=== PATIENT | female | born 1935 | race Caucasian/White ===

== ENCOUNTER 2017-09-04 17:49 | Inpatient (IN) | payer OTHER ==
[~2017-09-04] VITALS: Ht 165.1 cm; Wt 70.1 kg
[~2017-09-04 17:49] MED LIST: LISI-646 PO; METO-158 PO; OMEP20CA74 PO
[2017-09-04] MEDS ORDERED: SODIUM CHLORIDE 0.9% 1,000 ML IVB ONE (18:18)
[2017-09-04 20:30] LABS: Basophils # (auto) 0 uL; Eosinophils # (auto) 0 uL; Hemoglobin 9.5 g/dL (12.2-16.2); Mean Corpuscular Hgb Conc. 31.6 g/dL (32.0-36.0); Neutrophils # (auto) 4.4 uL; Nucleated Red Blood Cells % 0.2 %
[2017-09-04 20:32] LABS: Basophils % (auto) 0.2 % (0.0-2.0); Eosinophils % (auto) 0.2 % (0.0-7.0); Lymphocytes # (auto) 0.8 uL; Mean Corpuscular Hemoglobin 26.5 pg (28.0-32.0); Mean Corpuscular Volume 83.9 fL (80.0-100.0); Monocytes # (auto) 0.4 uL; Monocytes % (auto) 6.4 % (0.0-12.0); Neutrophils % (auto) 78.2 % (37.0-80.0); Platelet Count (auto) 388 10^3/uL (140-450); Red Blood Cells 3.58 10^6/uL (4.0-5.20); Red Cell Distribution Width 17.7 % (11.8-14.3); White Blood Cell 5.6 10^3/uL (4.4-10.8)
[2017-09-04 20:45] LABS: INR 1.15 (0.9-1.15); Partial Thromboplastin Time 34.3 sec (22.64-33.71); Prothrombin Time 12.5 sec (9.37-12.3)
[2017-09-04] MEDS ORDERED: SODIUM CHLORIDE 0.9% 1,000 ML IV ONE (20:45)
[2017-09-04 20:57] LABS: Albumin 3.2 g/dL (3.4-5.0); BUN/Creatinine Ratio 32.3; Potassium 3.9 mmol/L (3.5-5.1); Total Protein 6.1 g/dL (6.4-8.2)
[2017-09-04 21:23] LABS: Bilirubin, Total 0.4 mg/dL (0.2-1.0)
[2017-09-04] MEDS ORDERED: NITROGLYCERIN 0.4 MG SL TAB SL PRN (22:30)
[2017-09-04] MEDS ORDERED: MORPHINE SULFATE 10 MG/ML INJ 1ML SDV IV PRN (22:30)
[2017-09-04] MEDS ORDERED: MORPHINE SULF INJ 2 MG/ML SYRINGE 1ML IV PRN (23:00)
[2017-09-04] MEDS ORDERED: ONDANSETRON HCL 4 MG/2 ML VIAL IV PRN (23:00)
[2017-09-04 23:34] LABS: Urine Bacteria FEW /hpf (None Seen); Urine Blood Negative /uL (Negative); Urine Budding Yeast OCCASIONAL /hpf (None Seen); Urine Specific Gravity 1.027 (1.001-1.035); Urine WBC 28 /hpf (0 - 5)
[2017-09-05 05:08] VITALS: BP 116/88
[2017-09-05 07:52] VITALS: BP 121/88
[2017-09-05] MEDS ORDERED: DILTIAZEM HCL 60 MG TAB PO SCH (08:15)
[2017-09-05] MEDS ORDERED: DILTIAZEM HCL 25 MG/5 ML VIAL IV ONE ×2 (08:15→11:30)
[2017-09-05] MEDS ORDERED: METOPROLOL TARTRATE 50 MG TAB PO SCH (10:00)
[2017-09-05] MEDS ORDERED: LISINOPRIL 20 MG TAB PO SCH (10:00)
[2017-09-05] MEDS ORDERED: ASPirin 81 mg TAB PO SCH (10:00)
[2017-09-05] MEDS: LEVOFLOXACIN 500MG 100 ML IV SCH (10:36)
[2017-09-05] MEDS: HYDROcodone-ACET 5/325MG TAB PO PRN ×2 (10:39→21:43)
[2017-09-05] MEDS: OMEPRAZOLE 20MG/10ML ORAL SUSP PO SCH (11:06)
[2017-09-05] MEDS ORDERED: ASPirin-EC 325mg tab PO ONE (11:15)
[2017-09-05] MEDS ORDERED: SODIUM CHLORIDE 0.9% 1,000 ML IV SCH (12:15)
[2017-09-05] MEDS ORDERED: SODIUM CHLORIDE 0.9% 500 ML IV ONE (12:15)
[2017-09-05 13:00] VITALS: BP 104/71
[2017-09-05] MEDS ORDERED: DIGOXIN (250MCG/ML) 2 ML AMPULE IV SCH (13:45)
[2017-09-05 14:43] LABS: Basophils # (auto) 0 uL; Eosinophils # (auto) 0 uL; Hemoglobin 8.2 g/dL (12.2-16.2); Neutrophils # (auto) 5.1 uL
[2017-09-05 14:46] LABS: Basophils % (auto) 0.2 % (0.0-2.0); Eosinophils % (auto) 0.3 % (0.0-7.0); Hematocrit 27.1 % (36.0-46.0); Lymphocytes # (auto) 0.7 uL; Lymphocytes % (auto) 11.1 % (10.0-50.0); Mean Corpuscular Hemoglobin 26.1 pg (28.0-32.0); Mean Corpuscular Hgb Conc. 30.2 g/dL (32.0-36.0); Mean Corpuscular Volume 86.6 fL (80.0-100.0); Monocytes # (auto) 0.3 uL; Monocytes % (auto) 5.6 % (0.0-12.0); Neutrophils % (auto) 82.8 % (37.0-80.0); Platelet Count (auto) 310 10^3/uL (140-450); Red Blood Cells 3.13 10^6/uL (4.0-5.20); Red Cell Distribution Width 17.9 % (11.8-14.3); White Blood Cell 6.1 10^3/uL (4.4-10.8)
[2017-09-05 15:21] LABS: Albumin 2.6 g/dL (3.4-5.0); BUN/Creatinine Ratio 28.4; Bilirubin, Total 0.4 mg/dL (0.2-1.0); Calcium 7.5 mg/dL (8.5-10.1); Potassium 3.7 mmol/L (3.5-5.1); Total Protein 5.2 g/dL (6.4-8.2)
[2017-09-05 17:00] VITALS: BP 123/75
[2017-09-05] MEDS: ENOXAPARIN SOD 80 MG/0.8ML SYRINGE SC SCH (17:29)
[2017-09-05 19:50] VITALS: BP 106/56
[2017-09-06] VITALS: BP 130/19
[2017-09-06 04:00] VITALS: BP 125/58
[2017-09-06 05:25] LABS: BUN/Creatinine Ratio 28.1; Calcium 7.9 mg/dL (8.5-10.1); Potassium 3.9 mmol/L (3.5-5.1)
[2017-09-06 05:29] LABS: Basophils # (auto) 0 uL; Basophils % (auto) 0.1 % (0.0-2.0); Eosinophils # (auto) 0 uL; Lymphocytes # (auto) 0.9 uL; Monocytes # (auto) 0.3 uL; Red Blood Cells 3.04 10^6/uL (4.0-5.20); White Blood Cell 5.2 10^3/uL (4.4-10.8)
[2017-09-06 05:31] LABS: Eosinophils % (auto) 0.5 % (0.0-7.0); Hematocrit 25.3 % (36.0-46.0); Lymphocytes % (auto) 17.1 % (10.0-50.0); Mean Corpuscular Hemoglobin 26.5 pg (28.0-32.0); Mean Corpuscular Hgb Conc. 31.9 g/dL (32.0-36.0); Monocytes % (auto) 5.7 % (0.0-12.0); Neutrophils % (auto) 76.6 % (37.0-80.0); Platelet Count (auto) 284 10^3/uL (140-450); Red Cell Distribution Width 17.5 % (11.8-14.3)
[2017-09-06 08:00] VITALS: BP 145/83
[2017-09-06] MEDS: LEVOFLOXACIN 500MG 100 ML IV SCH (10:25)
[2017-09-06] MEDS: ASPirin-EC 325mg tab PO SCH (10:26)
[2017-09-06] MEDS: FUROSEMIDE 20 MG TAB PO SCH (10:27)
[2017-09-06] MEDS: OMEPRAZOLE 20MG/10ML ORAL SUSP PO SCH (10:28)
[2017-09-06] MEDS: METOPROLOL SUCCINATE XL 50 MG TAB PO SCH (10:29)
[2017-09-06] MEDS: ENOXAPARIN SOD 80 MG/0.8ML SYRINGE SC SCH (10:38)
[2017-09-06] MEDS ORDERED: ATORVASTATIN 20 MG TAB PO ONE (11:00)
[2017-09-06 11:37] LABS: % Iron Saturation 3.9 % (15-50)
[2017-09-06 12:00] VITALS: BP 144/76
[2017-09-06 15:55] VITALS: BP 122/80
[2017-09-06 19:50] VITALS: BP 146/91
[2017-09-06] MEDS: HYDROcodone-ACET 5/325MG TAB PO PRN (23:09)
[2017-09-07] VITALS: BP 139/83
[2017-09-07 04:00] VITALS: BP 136/100
[2017-09-07 05:37] LABS: Basophils # (auto) 0 uL; Basophils % (auto) 0.1 % (0.0-2.0); Eosinophils # (auto) 0 uL; Hemoglobin 8.5 g/dL (12.2-16.2); Lymphocytes # (auto) 0.7 uL; Neutrophils # (auto) 3.7 uL
[2017-09-07 05:39] LABS: Eosinophils % (auto) 0.8 % (0.0-7.0); Hematocrit 26.4 % (36.0-46.0); Lymphocytes % (auto) 14.9 % (10.0-50.0); Mean Corpuscular Hemoglobin 26.4 pg (28.0-32.0); Mean Corpuscular Hgb Conc. 32.2 g/dL (32.0-36.0); Mean Corpuscular Volume 82.2 fL (80.0-100.0); Monocytes # (auto) 0.3 uL; Monocytes % (auto) 5.7 % (0.0-12.0); Neutrophils % (auto) 78.5 % (37.0-80.0); Platelet Count (auto) 274 10^3/uL (140-450); Red Blood Cells 3.21 10^6/uL (4.0-5.20); Red Cell Distribution Width 17.3 % (11.8-14.3); White Blood Cell 4.7 10^3/uL (4.4-10.8)
[2017-09-07 05:51] LABS: Albumin 2.8 g/dL (3.4-5.0); BUN/Creatinine Ratio 26.3; Calcium 8.2 mg/dL (8.5-10.1); Potassium 3.5 mmol/L (3.5-5.1)
[2017-09-07 05:54] LABS: Bilirubin, Total 0.4 mg/dL (0.2-1.0); Total Protein 5.5 g/dL (6.4-8.2)
[2017-09-07] MEDS ORDERED: CLOPIDOGREL BISULFATE 75 MG TAB PO SCH (10:00)
[2017-09-07] MEDS: ENOXAPARIN SOD 80 MG/0.8ML SYRINGE SC SCH (10:14)
[2017-09-07] MEDS: METOPROLOL SUCCINATE XL 50 MG TAB PO SCH (10:14)
[2017-09-07] MEDS: OMEPRAZOLE 20MG/10ML ORAL SUSP PO SCH (10:14)
[2017-09-07] MEDS: ASPirin-EC 325mg tab PO SCH (10:14)
[2017-09-07] MEDS: FUROSEMIDE 20 MG TAB PO SCH (10:14)
[2017-09-07] MEDS ORDERED: HYDR-4683 PO (10:35)
[2017-09-07] MEDS ORDERED: CLOP75TA28 PO (10:35)
[2017-09-07] MEDS ORDERED: METO50TA7 PO (10:35)
[2017-09-07] MEDS ORDERED: NITR0.4S29 SL (10:35)
[2017-09-07] MEDS ORDERED: FUR20T PO (10:35)
[2017-09-07] MEDS ORDERED: OME20GT PO (10:35)
[2017-09-07] MEDS ORDERED: LISI-275 PO (10:35)
[2017-09-07] MEDS ORDERED: MUPI2OIN10 TOP (10:38)
[2017-09-07 12:00] VITALS: BP 145/52
[2017-09-07] MEDS ORDERED: DILTIAZEM HCL 25 MG/5 ML VIAL IV ONE (16:30)
[2017-09-07 17:01] VITALS: BP 117/73
[2017-09-08] MEDS ORDERED: PANTOPRAZOLE 40 MG TAB PO SCH (10:00)
== END 2017-09-07 18:27 | DRG 280 ==
LOC: EDBD 17:49 → ER 17:49 → TELE 17:50 → TELE-EAST 09-05 05:10 → DOU IN ICU 09-05 18:28
PROVIDERS: ADMIT Internal Medicine; ATTEND Internal Medicine
DX: I21.4 Non-ST elevation (NSTEMI) myocardial infarction (principal); E43 Unspecified severe protein-calorie malnutrition; S32.592A Other specified fracture of left pubis, initial encounter for closed fracture; I27.20 Pulmonary hypertension, unspecified; I48.91 Unspecified atrial fibrillation; S32.10XA Unspecified fracture of sacrum, initial encounter for closed fracture; I07.1 Rheumatic tricuspid insufficiency; G30.9 Alzheimer's disease, unspecified; F02.80 Dementia in other diseases classified elsewhere, unspecified severity, without behavioral disturbance, psychotic disturbance, mood disturbance, and anxiety; N39.0 Urinary tract infection, site not specified; D64.9 Anemia, unspecified; W18.39XA Other fall on same level, initial encounter; Z96.642 Presence of left artificial hip joint; M19.90 Unspecified osteoarthritis, unspecified site; I10 Essential (primary) hypertension; I35.1 Nonrheumatic aortic (valve) insufficiency; K21.9 Gastro-esophageal reflux disease without esophagitis; K57.30 Diverticulosis of large intestine without perforation or abscess without bleeding; Z79.899 Other long term (current) drug therapy; Z82.49 Family history of ischemic heart disease and other diseases of the circulatory system; Z90.710 Acquired absence of both cervix and uterus; Z91.81 History of falling; Z95.0 Presence of cardiac pacemaker; Y93.89 Activity, other specified; Y92.89 Other specified places as the place of occurrence of the external cause; Y99.8 Other external cause status
CPT/HCPCS: 36415; 70450; 71045; 72192; 80048; 80053; 81001; 83540; 83550; 83735; 83880; 84443; 84484; 85025; 85610; 85730; 87081; 93005; 93306; 93886; 96361; 96374; 96376; 97116; 97163; 97530; J1956; J2405